=== PATIENT | male | born 1965 | race Caucasian/White ===

== ENCOUNTER 2022-09-25 11:21 | Outpatient (OUT) | payer OTHER, SELFPAY ==
[2022-09-25 11:47] LABS: Basophils Percent Auto 0.6 % (0.2-2.0); Eosinophils Absolute Auto 0.1 10^3/uL (0.0-0.7); Eosinophils Percent Auto 1.2 % (0.9-7.0); Hematocrit 45.4 % (42.0-54.0); Immature Granulocytes Abs Auto 0.02 10^3/uL (0.00-0.03); Immature Granulocytes Pct Auto 0.4 % (0.0-0.5); Lymphocytes Absolute Auto 1.5 10^3/uL (1.2-3.8); Mean Corpuscular HGB Conc 35.2 g/dL (29.9-35.2); Mean Corpuscular Hemoglobin 30.5 pg (25.9-34.0); Mean Corpuscular Volume 86.6 fL (80.0-94.0); Mean Platelet Volume 9.9 fL (9.5-13.5); Monocytes Absolute Auto 0.3 10^3/uL (0.3-0.8); Monocytes Percent Auto 6.6 % (1.7-12.0); Neutrophils Absolute Auto 3.1 10^3/uL (1.4-6.5); Neutrophils Percent Auto 62.2 % (43.0-75.0); Platelet Count 166 10^3/uL (150-450); Red Blood Count 5.24 10^6/uL (4.70-6.10); Red Cell Distribution Width 13.3 % (11.0-15.0)
[2022-09-25 12:10] LABS: Estimated Average Glucose 105 mg/dL; Glycohemoglobin A1C 5.3 % (4.5-6.2)
[2022-09-25 12:39] LABS: Alanine Aminotransferase 121 U/L (16-63); Albumin Globulin Ratio 1.3; Albumin Level 4.3 g/dL (3.4-5.0); Alkaline Phosphatase 67 U/L (46-116); Aspartate Amino Transferase 60 U/L (15-37); Bilirubin Direct 0.1 mg/dL (0.0-0.2); Bilirubin Total 0.5 mg/dL (0.2-1.0); Calcium 9.1 mg/dL (8.5-10.1); Carbon Dioxide 29.4 mmol/L (21.0-32.0); Chloride 102 mmol/L (98-107); Cholesterol 216 mg/dL (<=200); Estimated GFR (African America >60 (>=60); Estimated GFR (Non-African Ame 57 (>=60); Globulin 3.4 g/dL; Glucose 141 mg/dL (74-106); HDL Cholesterol 36 mg/dL (40-60); Potassium 3.4 mmol/L (3.5-5.1); Sodium 140 mmol/L (136-145); Thyroid Stimulating Hormone 1.873 uIU/mL (0.358-3.740); Total Protein 7.7 g/dL (6.4-8.2); Triglycerides 421 mg/dL (<=150); VLDL CHOLESTEROL 84.2 mg/dL
[2022-09-25 12:42] LABS: Prostate Specific Antigen Scrn 1.66 ng/mL (<=4.00)
[2022-09-25 12:43] LABS: LDL Cholesterol Direct 106 mg/dL
== END 2022-09-25 11:22 | disposition home or self-care (01) ==
LOC: LAB 11:25
PROVIDERS: PCP Family Medicine; Visit Provider Family Medicine
DX: Z00.00 Encounter for general adult medical examination without abnormal findings (principal); Z12.5 Encounter for screening for malignant neoplasm of prostate
CPT/HCPCS: 36415; 80048; 80061; 80076; 83036; 83721; 84443; 85025; G0103

== ENCOUNTER 2022-10-07 08:53 | Outpatient (OUT) | payer OTHER, SELFPAY ==
--- NOTE | 2022-10-07 08:58 | US_ITS ---
The [address] [address] Patient Name: ALEX LEUNG MRN: [id number] date: 1965 Sex: M Assigned Patient Location: [place] Current Patient Location: US Accession/Order Number: [id number] Exam Date: 10/07/2022 09:00 Report Date: 10/07/2022 09:38 At the request of: JARED DAVIES Procedure: US right upper quadrant EXAM: US right upper quadrant HISTORY: . Elevated Liver Function R79.89 . COMPARISON: None. TECHNIQUE: Grayscale and color imaging was performed FINDINGS: The pancreas appears normal. Scanning of the liver demonstrates diffuse increased echogenicity of liver consistent with fatty infiltration of liver. There was a small area of hypoechogenicity in the right lobe liver near the gallbladder fossa most consistent with focal fatty sparing. Liver is slightly enlarged measuring 20 cm. Color-flow is noted in the portal and hepatic veins. Common bile duct measures 5 mm. The gallbladder is unremarkable. Right kidney measures 10.6 x 5.1 x 5.3 cm. No solid renal cortical masses or hydronephrosis is noted. No fluid is noted in the right upper quadrant. US/US right upper quadrant IMPRESSION: 1. Liver is enlarged measuring 20 cm. There is increased echogenicity of liver consistent with fatty infiltration of liver. There was a small area of hypoechogenicity in the right lobe of the liver near the gallbladder fossa most likely representing focal fatty sparing. 2. The remainder of the right upper quadrant was unremarkable. Electronically authenticated by: GLORIA SHEPARD Date: 10/07/2022 09:38
[2022-10-07 13:46] LABS: Estimated Average Glucose 103 mg/dL; Glycohemoglobin A1C 5.2 % (4.5-6.2)
[2022-10-08 05:12] LABS: HBsAg Screen Negative (Negative); HCV Ab Non Reactive (Non Reactive); Hep A Ab, IgM Negative (Negative); Hep B Core Ab, IgM Negative (Negative)
== END 2022-10-07 08:54 | disposition home or self-care (01) ==
LOC: US 08:53
PROVIDERS: PCP Family Medicine; Visit Provider Family Medicine
DX: R73.03 Prediabetes (principal); R79.89 Other specified abnormal findings of blood chemistry
CPT/HCPCS: 36415; 76705; 80074; 83036